=== PATIENT | female | born 1950 | race Caucasian/White ===

== ENCOUNTER → 2019-06-13 | Outpatient (CLI) | payer OTHER ==
[~2019-06-13] MED LIST: ASPIRIN325 PO; ATIVAN1 MG PO; BENICAR HCT 401 EAC1 PO; CELEBREX 200 M200 M1 PO; DIABETA 5MG TABL5 MG PO; FENOFIBRATE160 MG PO; GLYBURIDE 5 MG T5 M1 PO; METAMUCIL1 EAC1 PO; MOM PO; NEURONTIN 300300 M1 PO; NEXIUM40 MG PO; OXYCODONE HCL5 MG PO; PERCOCET PO; ROXICODONE5 MG PO; TRAMADOL 50 MG50 MG PO; TRAVATAN Z5 ML OPHTHALMIC; XARELTO10 MG PO; ZIAGEN 300 MG300 MG
== END ==
LOC: M.RAD 12:03
DX: Z12.31 Encounter for screening mammogram for malignant neoplasm of breast (principal)

== ENCOUNTER → 2021-02-25 | Outpatient (CLI) | payer OTHER | LOC: M.RAD 13:30 | PROVIDERS: ATTEND Nurse Practitioner Family | DX: Z12.31 Encounter for screening mammogram for malignant neoplasm of breast (principal); N64.89 Other specified disorders of breast ==